=== PATIENT | female | born 2000 | race Two or more races ===

== ENCOUNTER 2025-11-16 00:21 | Emergency (ER) | payer OTHER ==
[~2025-11-16] VITALS: Ht 170.2 cm; Wt 122.5 kg
[2025-11-16] MEDS ORDERED: PRENATAL + DHA1 EAC1 PO (00:30)
[2025-11-16] MEDS ORDERED: ACETAMINOPHEN 500 MG GEL..CAP PO ONE ×2 (01:15→02:25)
[2025-11-16 03:01] LABS: BASO % 0.3 % (0.1-1.2); EOS # 0.11 (0.04-0.54); EOS % 1.1 % (0.7-7.0); LYMPH # 2.12 (1.18-3.74); LYMPH % 21.0 % (19.3-53.1); MEAN PLATELET VOLUME 9.20 fl (9.4-12.4); MONO # 0.52 (0.24-0.82); MONO % 5.1 % (4.7-12.5); NEUT # 7.29 (1.56-6.13); NEUT % 72.1 % (34.0-71.1); RED CELL DISTRIBUTION WIDTH 15.8 % (11.6-14.4)
[2025-11-16 03:14] LABS: ALT/SGPT 28.0 U/L (12-78); AST/SGOT 19.0 U/L (15-37); BILIRUBIN TOTAL 0.27 mg/dL (0.3-1.2); BUN CREA RATIO 24.0 (7.0-25.0); CREATININE SERUM 0.59 mg/dL (0.55-1.02); GFR 124.19; GLOBULINA 5.1 G/DL (2.4-3.5); GLUCOSE FASTING 92.0 mg/dL (65-100); OSMOLALITY SERUM 274.0 MOSM/KG (275-295)
[2025-11-16 04:33] LABS: URINE BILIRRUBIN NEGATIVE (NEGATIVE); URINE BLOOD NEGATIVE; URINE GLUCOSE NEGATIVE (NEGATIVE); URINE KETONE NEGATIVE (NEGATIVE); URINE LEUKOCYTE NEGATIVE; URINE NITRATE NEGATIVE; URINE PROTEIN NEGATIVE (NEGATIVE); URINE UROBILINOGEN 0.2 E.U./dl
[2025-11-16 04:34] LABS: URINE APPEARANCE SL CLOUDY; URINE BACTERIA MANY; URINE COLOR YELLOW; URINE EPITHELIAL CELLS LOADED /HPF; URINE RBC 0-3 /HPF
== END 2025-11-16 06:23 | disposition home or self-care (01) ==
LOC: ER 00:22
PROVIDERS: Student in an Organized Health Care Education/Training Program
DX: O26.891 Other specified pregnancy related conditions, first trimester (principal); R10.20 Pelvic and perineal pain unspecified side; R16.2 Hepatomegaly with splenomegaly, not elsewhere classified; Z3A.13 13 weeks gestation of pregnancy; Z88.2 Allergy status to sulfonamides